=== PATIENT | male | born 1950 ===

== ENCOUNTER 2018-12-28 11:04 | Outpatient (CLI) | payer MEDICARE | END 2018-12-28 11:05 | disposition home or self-care (01) | LOC: C.PAT 11:04 | DX: K43.2 Incisional hernia without obstruction or gangrene (principal); K42.9 Umbilical hernia without obstruction or gangrene ==

== ENCOUNTER 2018-12-30 13:51 | Outpatient (CLI) | payer MEDICARE | END 2018-12-30 13:52 | disposition home or self-care (01) | LOC: C.CTH 13:51 ==

== ENCOUNTER 2019-01-01 10:50 | Outpatient (CLI) | payer MEDICARE | END 2019-01-01 10:51 | disposition home or self-care (01) | LOC: C.CTH 10:50 ==

== ENCOUNTER 2019-01-08 06:14 | Day surgery (SDC) | payer MEDICARE ==
[2018-12-28 11:14] VITALS: BMI 26.6
[2019-01-08] MEDS ORDERED: Bupivacaine HCl 0.25% PF (10 ml) Inj ONE (07:12)
[2019-01-08] MEDS ORDERED: ceFAZolin 1 gm in NS 2 GM/200 ML BAG IVPB ONE (07:12)
[2019-01-08] MEDS ORDERED: Sodium Chloride 0.9% 40 ML IV ONE (07:12)
[2019-01-08] MEDS ORDERED: Lidocaine/Epinephrine 1% 1:100000 10 ML IJ ONE (07:13)
[2019-01-08] MEDS ORDERED: Bupivacaine Liposomal Inj 20 ml INJ ONE (08:04)
[2019-01-08] MEDS ORDERED: Dexamethasone 4 mg/1 ml ONE (08:07)
[2019-01-08] MEDS ORDERED: Midazolam 2 MG/2 ML VIAL ONE (08:33)
[2019-01-08] MEDS ORDERED: Propofol 10 mg/ml Inj (20 ML) ONE (08:33)
[2019-01-08] MEDS ORDERED: Rocuronium 10 mg/ml (5 ml) ONE (08:34)
[2019-01-08] MEDS ORDERED: Neostigmine 1:1000 (1 mg/ml) Inj ONE (08:34)
[2019-01-08] MEDS ORDERED: Lidocaine Hydrochloride 5 ML INJ ONE (10:10)
[2019-01-08] MEDS ORDERED: Lactated Ringer's 1,000 ML IV ONE (11:28)
--- NOTE | 2019-01-08 11:32 | PCM.SURG1 ---
Surgeon's Initial Post Op Note - Surgeon's Notes Surgeon: Dr. Nelson Career Services Coordinator: Dr. Cheek PGY3; Kg Rosenthal Type of Anesthesia: General Endo Pre-Operative Diagnosis: umbilical and incisional hernia Operative Findings: see dictation Post-Operative Diagnosis: same Operation Performed: robot-assiated laparoscopic umbilical and incisional hernia repair w/ mesh; repair of diastasis Specimen/Specimens Removed: umbilical hernia; incisional hernia Estimated Blood Loss: EBL {In ML}: 100 Blood Products Given: N/A Drains Used: No Drains Post-Op Condition: Good Date of Surgery/Procedure: 01/08/19 Time of Surgery/Procedure: 11:31
[2019-01-08] MEDS: HYDROmorphone 0.5 mg/0.5 ml ISec IVP PRN ×3 (12:25→12:45)
[2019-01-08 15:21] VITALS: RESP 18; TEMP 97.6
[2019-01-08] MEDS ORDERED: Oxycodone/Acetaminophen 5/325 mg Tab PO PRN (15:43)
[2019-01-08 18:50] VITALS: BP 139/80; PULSE 64; O2SAT 98
--- NOTE | 2019-01-09 03:38 | OP ---
PROCEDURE DATE: 01/08/2019 PREOPERATIVE DIAGNOSES: 1. Umbilical hernia. 2. Incisional hernia in upper abdomen. 3. Extensive postoperative adhesion due to previous exploratory laparotomy. POSTOPERATIVE DIAGNOSES: 1. Umbilical hernia 2 x 2 cm size. 2. Supraumbilical incisional hernia, incarcerated 3 x 2 cm size. 3. Epigastric incisional hernia 4 x 4 cm size. 4. Extensive postoperative peritoneal adhesion. 5. Diastasis of the rectus muscle approximately 12 x 4 cm size. PROCEDURES DONE: 1. Robotic umbilical hernia repair with the mesh. 2. Robotic supraumbilical incarcerated incisional hernia repair with mesh. 3. Robotic epigastric incisional hernia repair with mesh. 4. Robotic diastasis of rectus muscle repaired with mesh. 5. Robotic extensive peritonealization and lysis of adhesions. 6. Laparoscopic bilateral TAP block placement. SURGEON: Eric Nelson MD CHEFS: LUIS Broderick and Macey Cheek, PGY 3, resident. TYPE OF ANESTHESIA: General endotracheal tube anesthesia. ESTIMATED BLOOD LOSS: Around 100 mL. DRAINS: None. PATHOLOGY: The umbilical hernial sac and incisional hernial sac was sent for pathology. COMPLICATIONS: None. INTRAOPERATIVE FINDINGS: The patient had 2 x 2 cm umbilical hernia as well as 3 x 2 cm supraumbilical incisional hernia and the patient had epigastric incisional hernia of approximately 4 x 4 cm size and diastasis of rectus muscles was 12 x 4 cm and the patient also had extensive peritoneal adhesion due to the previous exploratory laparotomy and approximately 60 to 80 minutes extra time was spent for lysis of adhesion and control of bleeding from the inferior epigastric artery. DESCRIPTION OF PROCEDURE: On intraoperative steps, this 68-year-old male was diagnosed with umbilical hernia as well as incisional hernia and the patient had previous exploratory laparotomy for the open aortic repair and the patient was consented for the robotic umbilical hernia as well as incisional hernia repair with mesh, brought to the OR, placed supine on the operating table. After induction of anesthesia, the abdomen was prepped and draped in the usual sterile fashion. The right upper quadrant incision was made using the VisiPort technique. Peritoneal cavity was entered, pneumo was created. Now the 3/8 mm port was placed on the left flank, left upper quadrant and left lower quadrant. The robot was brought in. Camera arm as well as arm 1 and arm 2 was docked. The patient had extensive peritoneal adhesion and peritoneal adhesion was lysed and it took approximately 30 to 40 minute extra for the lysis of adhesion. After that umbilical hernia, supraumbilical incisional hernia and another epigastric incisional hernia was identified. The patient had diastasis of rectus muscles approximately 12 x 4 cm, was identified, and now the umbilical hernia was repaired in two layers with #1 Prolene V-Loc suture. The supraumbilical incisional hernia was also repaired with #1 Prolene V-Loc suture in two layers and the incisional hernia in the epigastric area was also repaired with #1 Prolene V-Loc suture. The diastasis of the rectus muscle was repaired by approximating the right and left rectus muscles in the midline. During the second layer closure including all the defect that was previously closed and after that large 20 x 8 cm large mesh was introduced and the mesh was implanted laparoscopically and after that laparoscopic bilateral TAP block was given 30:30 mL of Exparel with Decadron was injected in the transverse abdominal muscle plane area and after proper TAP block, all the port was taken out under vision, pneumo was deflated. During procedure there was bleeding from the inferior epigastric artery that was controlled successfully and suction irrigation of the peritoneal cavity was done and all the ports were closed in two layer, subcu with Vicryl and the skin with 4-0 Monocryl. Dry sterile dressing was applied. The patient tolerated the procedure well. Counts of instrument and gauze were correct. There were no apparent complications. Eric Nelson MD
== END 2019-01-08 18:54 | disposition home or self-care (01) ==
LOC: C.SDS 06:14
PROVIDERS: ATTEND Surgery Surgical Critical Care
DX: K42.9 Umbilical hernia without obstruction or gangrene (principal); K42.0 Umbilical hernia with obstruction, without gangrene; K66.0 Peritoneal adhesions (postprocedural) (postinfection); M62.08 Separation of muscle (nontraumatic), other site; I10 Essential (primary) hypertension; I25.10 Atherosclerotic heart disease of native coronary artery without angina pectoris; I71.4 Abdominal aortic aneurysm, without rupture
CPT/HCPCS: 49652; 49655; 88302; J0690; J1100; J1170; J2250; J2405; J2704; J2710; J3010; J7120